=== PATIENT | male | born 1960 | race Caucasian/White ===

== ENCOUNTER 2019-02-19 22:28 | Emergency (ER) | payer OTHER ==
--- NOTE | 2019-02-19 23:07 | EDM.PDOC ---
ED HPI GENERAL MEDICAL PROBLEM - General Chief Complaint: Abdominal Pain Stated Complaint: ABDOMINAL PAIN Time Seen by Provider: 02/19/19 22:57 - History of Present Illness INITIAL COMMENTS - FREE TEXT/NARRATIVE: 58-year-old male presents emergency room with abdominal pain. This pain started early this morning comes and goes. He's had some nausea with this but no vomiting. Up until today he's had fairly normal bowel movements. He' s worried about an appendicitis as the pain is in the right lower quadrant at its worse location. He has no significant history of abdominal surgeries and otherwise enjoys good health other than treatment for his hypertension.. Treatments SOLUTION SPEC: Reports: Other (see below) Other Treatments SOLUTION SPEC: none Abdomen Pain Score (Numeric/FACES): 8 - Related Data Allergies Allergy/AdvReac Type Severity Reaction Status Date / Time contrast dye Allergy Anaphylactic Uncoded 02/19/19 22:42 Shock Home Meds: Home Meds Candesartan/Hydrochlorothiazid [Atacand Hct 32-12.5 mg Tab] 1 each PO DAILY [History] Doxazosin [Doxazosin Mesylate] 8 mg PO BEDTIME 02/23/14 [History] Cholecalciferol (Vitamin D3) [Vitamin D3] 2,000 unit PO DAILY 02/19/19 [History] Spironolactone [Aldactone] 12.5 mg PO DAILY 02/19/19 [History] Past Medical History HEENT History: Reports: Other (See Below) Other HEENT History: deviated septum surgery Cardiovascular History: Reports: Hypertension Genitourinary History: Reports: Prostate Disorder Social & Family History - Tobacco Use Smoking Status *Q: Former Smoker Used Tobacco, but Quit: Yes Month/Year Tobacco Last Used: 35 yrs - Caffeine Use Caffeine Use: Reports: Coffee, Soda - Recreational Drug Use Recreational Drug Use: No ED ROS GENERAL - Review of Systems Review Of Systems: See Below Constitutional: Reports: No Symptoms, Weight Gain HEENT: Reports: Vertigo Cardiovascular: Reports: No Symptoms GI/Abdominal: Reports: Abdominal Pain, Nausea. Denies: Constipation, Diarrhea : Reports: No Symptoms Musculoskeletal: Reports: No Symptoms Skin: Reports: No Symptoms Neurological: Reports: No Symptoms ED EXAM, GI/ABD - Physical Exam Exam: See Below Exam Limited By: No Limitations General Appearance: Alert, No Apparent Distress Head: Atraumatic, Normocephalic Neck: Normal Inspection, Supple, Non-Tender. No: Lymphadenopathy (L), Lymphadenopathy (R) Respiratory/Chest: No Respiratory Distress, Lungs Clear, Normal Breath Sounds Cardiovascular: Regular Rate, Rhythm, No Edema, No Murmur GI/Abdominal Exam: Normal Bowel Sounds, Soft, Tender (He has some vague discomfort mostly in the right lower quadrant no rigidity rebound or guarding noted) Back Exam: Normal Inspection. No: CVA Tenderness (L), CVA Tenderness (R) Extremities: Normal Inspection, No Pedal Edema Neurological: Alert, Normal Cognition, Normal Reflexes Course - Vital Signs Last Recorded V/S: Last Vital Signs Temp 36.7 C 02/19/19 22:48 Pulse 63 02/19/19 22:48 Resp 20 02/19/19 22:48 BP 161/90 H 02/19/19 22:48 Pulse Ox 97 02/19/19 22:48 - Orders/Labs/Meds Orders: Active Orders 24 hr Category Date Time Status Abdomen 2V AP Flat Upright [CR] Stat Exams 02/19/19 23:23 Taken Labs: Laboratory Tests 02/19/19 02/19/19 02/19/19 Range/Units 23:34 23:34 23:46 WBC 11.72 H (4.23-9.07) K/mm3 RBC 5.10 (4.63-6.08) M/mm3 Hgb 15.2 (13.7-17.5) gm/L Hct 44.0 (40.1-51.0) % MCV 86.3 (79.0-92.2) fl MCH 29.8 (25.7-32.2) pg MCHC 34.5 (32.2-35.5) g/dl RDW Std Deviation 41.4 (35.1-43.9) fL Plt Count 134 L (163-337) K/mm3 MPV 11.5 (9.4-12.3) fl Neutrophils % (Manual) 80 H (40-60) % Band Neutrophils % 2 (0-10) % Lymphocytes % (Manual) 12 L (20-40) % Atypical Lymphs % 0 % Monocytes % (Manual) 6 (2-10) % Eosinophils % (Manual) 0 L (0.8-7.0) % Basophils % (Manual) 0 L (0.2-1.2) Toxic Granulation 1+ slight Platelet Estimate Decreased Plt Morphology Comment Normal RBC Morph Comment Normal Sodium 135 L (136-145) mEq/L Potassium 3.3 L (3.5-5.1) mEq/L Chloride 99 (98-107) mEq/L Carbon Dioxide 24 (21-32) mEq/L Anion Gap 15.3 H (5-15) BUN 22 H (7-18) mg/dL Creatinine 1.2 (0.7-1.3) mg/dL Est Cr Clr Drug Dosing 69.72 mL/min Estimated GFR (MDRD) > 60 (>60) mL/min BUN/Creatinine Ratio 18.3 H (14-18) Glucose 119 H (74-106) mg/dL Calcium 9.6 (8.5-10.1) mg/dL Total Bilirubin 0.6 (0.2-1.0) mg/dL AST 22 (15-37) U/L ALT 47 (16-63) U/L Alkaline Phosphatase 43 L (46-116) U/L C-Reactive Protein 0.3 (<1.0) mg/dL Total Protein 7.2 (6.4-8.2) g/dl Albumin 4.0 (3.4-5.0) g/dl Globulin 3.2 gm/dL Albumin/Globulin Ratio 1.3 (1-2) Urine Color Yellow (Yellow) Urine Appearance Clear (Clear) Urine pH 6.5 (5.0-8.0) Ur Specific [place] 1.025 (1.005-1.030) Urine Protein Trace H (Negative) Urine Glucose (UA) Negative (Negative) Urine Ketones 1+ H (Negative) Urine Occult Blood Negative (Negative) Urine Nitrite Negative (Negative) Urine Bilirubin Negative (Negative) Urine Urobilinogen 0.2 (0.2-1.0) Ur Leukocyte Esterase Negative (Negative) Urine RBC 0-5 (0-5) /hpf Urine WBC Not seen (0-5) /hpf Ur Epithelial Cells Not Reportable Ur Squamous Epith Cells 0-5 (0-5) /hpf Amorphous Sediment Rare H (NOT SEEN) /hpf Urine Bacteria Few (FEW) /hpf Urine Mucus Few (FEW) /hpf Meds: Medications Discontinued Medications Generic Name Dose Route Start Last Admin Trade Name Freq PRN Reason Stop Dose Admin Lactated Ringer's 1,000 mls @ 999 mls/hr 02/19/19 23:25 02/19/19 23:41 Ringers, Lactated IV 02/20/19 00:25 999 mls/hr .BOLUS ONE Administration Ondansetron HCl 4 mg 02/19/19 23:25 02/19/19 23:42 Zofran IVPUSH 02/19/19 23:26 4 mg ONETIME ONE Administration - Re-Assessments/Exams Free Text/Narrative Re-Assessment/Exam: 02/20/19 00:46 Laboratory evaluation is for the most part unrevealing. KUB and upright were done he's got it fair amount of stool in the right colon than scattered stool throughout. The patient is not eager to have a CT is she's had a bad reaction to the contrast in the past. We discussed pretreatment for this versus going home clear liquid diet trying the mag citrate and see if this helps. The patient would like to try this option he also agrees to return in 12 hours if not better sooner if getting worse Departure - Departure Time of Disposition: 00:51 Disposition: Home, Self-Care 01 Clinical Impression: Abdominal pain of unknown etiology - Discharge Information Referrals: Dominick Milton MD [Primary Care Provider] - Forms: ED Department Discharge Additional Instructions: The cause of your abdominal pain is uncertain it could very well be due to retained stool in the right side of your colon. However we are not completely certain of this. For the next 12 hours clear liquid diet only. Drink the mag citrate when he gets home and repeat in 4-6 hours if needed. If not clearly improving in 12 hours return to the emergency room for recheck. Use the Zofran, the nausea medication one every 4-6 hours as needed. Return to the emergency room sooner with any worsening problems questions or concerns. - My Orders Last 24 Hours: My Active Orders 02/19/19 23:23 Abdomen 2V AP Flat Upright [CR] Stat - Assessment/Plan Last 24 Hours: My Active Orders 02/19/19 23:23 Abdomen 2V AP Flat Upright [CR] Stat
[2019-02-19] MEDS ORDERED: Ondansetron 4 MG/2 ML SDV IVPUSH ONE (23:25)
[2019-02-19] MEDS ORDERED: Lactated Ringers 1,000 ML IV ONE (23:25)
[2019-02-20] MEDS ORDERED: Magnesium Citrate Solution 296 ML Bottle PO ONE (00:51)
--- NOTE | 2019-02-20 07:15 | CR ---
Abdomen: Supine view of the abdomen was obtained as well as upright study. Scattered gas within colon and small bowel is noted. No bowel dilatation is seen. No abnormal calcifications or soft tissue abnormalities seen. Slight degenerative change is seen within the spine. Impression: 1. Nothing acute is seen on two-view abdominal x-ray. Diagnostic code #2
== END 2019-02-20 01:05 | disposition home or self-care (01) ==
LOC: JD.ED 22:28
DX: R10.31 Right lower quadrant pain (principal); I10 Essential (primary) hypertension; Z79.899 Other long term (current) drug therapy; Z91.041 Radiographic dye allergy status; Z87.891 Personal history of nicotine dependence
CPT/HCPCS: 36415; 74019; 80053; 81001; 85007; 85027; 86140; 96361; 96374; 99284; A9270; J2405; J7120; 99283

== ENCOUNTER 2019-11-01 03:09 | Day surgery (SDC) | payer OTHER ==
--- NOTE | 2019-11-01 04:09 | EDM.PDOC ---
ED HPI GENERAL MEDICAL PROBLEM - General Chief Complaint: Abdominal Pain Stated Complaint: LOWER ABDOMINAL PAIN RT SIDE MED ISSUE Time Seen by Provider: 11/01/19 03:52 Source of Information: Reports: Patient History Limitations: Reports: No Limitations - History of Present Illness INITIAL COMMENTS - FREE TEXT/NARRATIVE: This is a 58-year-old male. He was seen for some sinus congestion and upper respiratory symptoms yesterday and placed on Augmentin. He took his first dose yesterday evening. This morning he took a second dose and afterwards he developed some sharp pain with nausea in his lower abdomen. He has had this sharp pain for about 1 hour and he comes to the ER. No fever and no chills. He has had no diarrhea and no vomiting though he has been nauseated. The pain seems to be midline lower abdomen and also in the right lower quadrant. He walks with no difficulty and no hesitation. He moves about with no difficulty. Denies any other acute symptoms. Lower Abdomen Pain Score (Numeric/FACES): 7 - Related Data Allergies Allergy/AdvReac Type Severity Reaction Status Date / Time contrast dye Allergy Anaphylactic Uncoded 11/01/19 03:26 Shock Home Meds: Home Meds Candesartan/Hydrochlorothiazid [Atacand Hct 32-12.5 mg Tab] 1 each PO DAILY [History] Doxazosin [Doxazosin Mesylate] 8 mg PO BEDTIME 02/23/14 [History] Cholecalciferol (Vitamin D3) [Vitamin D3] 2,000 unit PO DAILY 02/19/19 [History] Spironolactone [Aldactone] 12.5 mg PO DAILY 02/19/19 [History] Past Medical History HEENT History: Reports: Other (See Below) Other HEENT History: deviated septum surgery Cardiovascular History: Reports: Hypertension Genitourinary History: Reports: Prostate Disorder Social & Family History - Family History Family Medical History: Noncontributory - Tobacco Use Smoking Status *Q: Unknown Ever Smoked - Caffeine Use Caffeine Use: Reports: Coffee, Soda ED ROS GENERAL - Review of Systems Review Of Systems: See Below Constitutional: Denies: Fever, Chills HEENT: Reports: Rhinitis, Sinus Problem Respiratory: Reports: Cough. Denies: Shortness of Breath, Wheezing Cardiovascular: Denies: Chest Pain Endocrine: Reports: No Symptoms GI/Abdominal: Reports: Abdominal Pain, Nausea. Denies: Constipation, Diarrhea, Vomiting : Reports: No Symptoms Musculoskeletal: Reports: No Symptoms Skin: Reports: No Symptoms Neurological: Reports: No Symptoms Psychiatric: Reports: No Symptoms Hematologic/Lymphatic: Reports: No Symptoms ED EXAM, GI/ABD - Physical Exam Exam: See Below Exam Limited By: No Limitations General Appearance: Alert, WD/WN, No Apparent Distress Eyes: Bilateral: Normal Appearance Ears: Normal External Exam Nose: Nasal Drainage, Clear Rhinorrhea Throat/Mouth: Normal Inspection, Normal Lips, No Airway Compromise, Other ( Patient has a hoarse voice) Head: Normocephalic Neck: Supple Respiratory/Chest: No Respiratory Distress, Lungs Clear, Normal Breath Sounds Cardiovascular: Regular Rate, Rhythm, No Murmur GI/Abdominal Exam: Soft, Other (He has some moderate midline and right lower quadrant tenderness but there are no rebound and no peritoneal irritation noted , his upper abdomen is nontender in the left lower quadrant is essentially nontender, bowel sounds are positive but they are decreased) Back Exam: Normal Inspection, Full Range of Motion Extremities: Normal Inspection, Normal Range of Motion Neurological: Alert, Oriented Psychiatric: Normal Affect, Normal Mood Skin Exam: Warm, Dry Course - Vital Signs Last Recorded V/S: Last Vital Signs Temp 97.5 F 11/01/19 03:23 Pulse 65 11/01/19 03:23 Resp 16 11/01/19 03:23 BP 152/85 H 11/01/19 03:23 Pulse Ox 95 11/01/19 03:23 - Orders/Labs/Meds Orders: Active Orders 24 hr Category Date Time Status Admission Status [Patient Status] [ADT] Routine ADT 11/01/19 05:19 Active NPO [Nothing Per Oral Diet] [DIET] Diet 11/01/19 Lunch Active Abdomen Pelvis wo Cont [CT] Stat Exams 11/01/19 03:59 Taken Ertapenem [INVanz] 1 gm Med 11/01/19 07:07 Pending Sodium Chloride 0.9% [Normal Saline] 50 ml IV ONETIME Lactated Ringers [Ringers, Lactated] 1,000 ml Med 11/01/19 07:15 Active IV ASDIRECTED Morphine Med 11/01/19 07:07 Active 1 mg IVPUSH Q4H PRN Schedule Procedure [COMM] Routine Oth 11/01/19 07:06 Ordered Medication Orders Ertapenem 1 gm/ Sodium (Chloride) 50 mls @ 100 mls/hr IV ONETIME ONE Stop: 11/01/19 07:36 Lactated Ringer's (Ringers, Lactated) 1,000 mls @ 100 mls/hr IV ASDIRECTED [facility] Last Admin: 11/01/19 07:16 Dose: 100 mls/hr Morphine Sulfate (Morphine) 1 mg IVPUSH Q4H PRN PRN Reason: Pain (severe 7-10) Labs: Laboratory Tests 11/01/19 11/01/19 11/01/19 Range/Units 04:05 04:25 04:25 WBC 6.06 (4.23-9.07) K/mm3 RBC 4.91 (4.63-6.08) M/mm3 Hgb 14.7 (13.7-17.5) gm/dl Hct 42.1 (40.1-51.0) % MCV 85.7 (79.0-92.2) fl MCH 29.9 (25.7-32.2) pg MCHC 34.9 (32.2-35.5) g/dl RDW Std Deviation 41.1 (35.1-43.9) fL Plt Count 106 L (163-337) K/mm3 MPV 10.7 (9.4-12.3) fl Neut % (Auto) 79.7 H (34.0-67.9) % Lymph % (Auto) 11.1 L (21.8-53.1) % [place] % (Auto) 8.1 (5.3-12.2) % Eos % (Auto) 0.7 L (0.8-7.0) Baso % (Auto) 0.2 (0.1-1.2) % Neut # (Auto) 4.84 (1.78-5.38) K/mm3 Lymph # (Auto) 0.67 L (1.32-3.57) K/mm3 [place] # (Auto) 0.49 (0.30-0.82) K/mm3 Eos # (Auto) 0.04 (0.04-0.54) K/mm3 Baso # (Auto) 0.01 (0.01-0.08) K/mm3 Sodium 140 (136-145) mEq/L Potassium 3.8 (3.5-5.1) mEq/L Chloride 103 (98-107) mEq/L Carbon Dioxide 26 (21-32) mEq/L Anion Gap 14.8 (5-15) BUN 16 (7-18) mg/dL Creatinine 1.2 (0.7-1.3) mg/dL Est Cr Clr Drug Dosing TNP Estimated GFR (MDRD) > 60 (>60) mL/min BUN/Creatinine Ratio 13.3 L (14-18) Glucose 111 H (74-106) mg/dL Calcium 8.6 (8.5-10.1) mg/dL Total Bilirubin 0.5 (0.2-1.0) mg/dL AST 37 (15-37) U/L ALT 67 H (16-63) U/L Alkaline Phosphatase 50 (46-116) U/L Total Protein 7.0 (6.4-8.2) g/dl Albumin 3.6 (3.4-5.0) g/dl Globulin 3.4 gm/dL Albumin/Globulin Ratio 1.1 (1-2) Urine Color Yellow (Yellow) Urine Appearance Clear (Clear) Urine pH 6.5 (5.0-8.0) Ur Specific [place] 1.025 (1.005-1.030) Urine Protein Negative (Negative) Urine Glucose (UA) Negative (Negative) Urine Ketones Trace H (Negative) Urine Occult Blood Trace-intact H (Negative) Urine Nitrite Negative (Negative) Urine Bilirubin Negative (Negative) Urine Urobilinogen 0.2 (0.2-1.0) Ur Leukocyte Esterase Negative (Negative) Urine RBC 0-5 (0-5) /hpf Urine WBC 0-5 (0-5) /hpf Ur Epithelial Cells Not seen (0-5) /hpf Urine Bacteria Occasional (FEW) /hpf Urine Mucus Not seen (FEW) /hpf Meds: Medications Generic Name Dose Route Start Last Admin Trade Name Freq PRN Reason Stop Dose Admin Ertapenem 1 gm/ Sodium 50 mls @ 100 mls/hr 11/01/19 07:07 Chloride IV 11/01/19 07:36 ONETIME ONE Lactated Ringer's 1,000 mls @ 100 mls/hr 11/01/19 07:15 11/01/19 07:16 Ringers, Lactated IV 100 mls/hr ASDIRECTED [facility]U Administration Morphine Sulfate 1 mg 11/01/19 07:07 Morphine IVPUSH Q4H PRN Pain (severe 7-10) Discontinued Medications Generic Name Dose Route Start Last Admin Trade Name Christopher PRN Reason Stop Dose Admin Piperacillin Sod/Tazobactam 100 mls @ 200 mls/hr 11/01/19 05:06 11/01/19 05: 25 Sod 4.5 gm/ Sodium Chloride IV 11/01/19 05:35 200 mls/hr ONETIME ONE Administration - Radiology Interpretation Free Text/Narrative:: CT scan of the abdomen shows acute appendicitis - Re-Assessments/Exams Free Text/Narrative Re-Assessment/Exam: 11/01/19 05:13 I spoke to the patient regarding the CT scan results. I then spoke to Dr. Toth who would like Zosyn IV started and we will get a bed for the patient and he will come in and see the patient. I also explained to Dr. Toth that the patient does have an upper respiratory infection for which she is being treated with Augmentin. Last time the patient ate was 5 PM yesterday he has been drinking some water since that time. 11/01/19 07:28 Patient has been sleeping peacefully. Departure - Departure Time of Disposition: 05:15 Disposition: DC/Tfer to [facility] Condition: Fair Clinical Impression: Appendicitis, acute Qualifiers: Acute appendicitis type: with localized peritonitis Appendicitis gangrene presence: without gangrene Appendicitis perforation presence: without perforation Appendicitis abscess presence: without abscess Qualified Code(s): K35.30 - Acute appendicitis with localized peritonitis, without perforation or gangrene - Discharge Information Sepsis Event Note - Evaluation Sepsis Screening Result: No Definite Risk - Focused Exam Vital Signs: Vital Signs Temp Pulse Resp BP Pulse Ox 11/01/19 03:23 97.5 F 65 16 152/85 H 95 Date Exam was Performed: 11/01/19 Time Exam was Performed: 07:28 ED Communication - ED Communication Date/Time Date: 11/01/19 Time Called: 05:15 - Discussed Case With (1) Discussed Case With (1): Admitting Provider Person/s Notified (1): Maximiliano Toth (He will admit to observation for further evaluation and treatment) - My Orders Last 24 Hours: My Active Orders 11/01/19 03:59 Abdomen Pelvis wo Cont [CT] Stat 11/01/19 05:19 Admission Status [Patient Status] [ADT] Routine - Assessment/Plan Last 24 Hours: My Active Orders 11/01/19 03:59 Abdomen Pelvis wo Cont [CT] Stat 11/01/19 05:19 Admission Status [Patient Status] [ADT] Routine
[2019-11-01] MEDS ORDERED: Piperacillin/Tazobactam 4.5 GM in Sodium Chloride 0.9% 100 ML IV ONE (05:06)
[2019-11-01] MEDS ORDERED: Ertapenem 1 GM in Sodium Chloride 0.9% 50 ML IV ONE (07:07)
[2019-11-01] MEDS ORDERED: Morphine 2 MG/ML Syringe IVPUSH PRN (07:07)
[2019-11-01] MEDS ORDERED: Lactated Ringers 1,000 ML IV SCH (07:15)
--- NOTE | 2019-11-01 07:45 | PCM.HP.2 ---
H&P History of Present Illness - General Date of Service: 11/01/19 Admit Problem/Dx: Admission Diagnosis/Problem Admission Diagnosis/Problem Appendicitis Source of Information: Patient History Limitations: Reports: No Limitations - History of Present Illness Initial Comments - Free Text/Narative: 58 yo M presents with RLQ pain that began suddenly last night out of the blue. He had similar pain back in February this year, at which time he was seen in the ER and sent out on a bowel regimen for constipation and his symptoms subsided. He has associated anorexia. He denies fever, though he has been taking augmentin for the past two days for sinusitis. His WBC is normal. CT scan without contrast (the patient has an iodine allergy) shows some inflammatory changes around the appendix and moderate stool burden in the R colon with fecalization in the terminal ileum similar to past imaging. Onset of Symptoms: Reports: Today Duration of Symptoms: Reports: Hour(s): Location: Reports: Abdomen Lower Abdomen Pain Score (Numeric/FACES): 7 - Related Data Allergies/Adverse Reactions: Allergies Allergy/AdvReac Type Severity Reaction Status Date / Time contrast dye Allergy Anaphylactic Uncoded 11/01/19 03:26 Shock Home Medications: Home Meds Candesartan/Hydrochlorothiazid [Atacand Hct 32-12.5 mg Tab] 1 each PO DAILY [History] Doxazosin [Doxazosin Mesylate] 8 mg PO BEDTIME 02/23/14 [History] Cholecalciferol (Vitamin D3) [Vitamin D3] 2,000 unit PO DAILY 02/19/19 [History] Spironolactone [Aldactone] 12.5 mg PO DAILY 02/19/19 [History] Past Medical History HEENT History: Reports: Other (See Below) Other HEENT History: deviated septum surgery Cardiovascular History: Reports: Hypertension Genitourinary History: Reports: Prostate Disorder Social & Family History - Family History Family Medical History: Noncontributory - Tobacco Use Smoking Status *Q: Unknown Ever Smoked - Caffeine Use Caffeine Use: Reports: Coffee, Soda H&P Review of Systems - Review of Systems: Review Of Systems: See Below General: Reports: Malaise HEENT: Reports: Post Nasal Drip, Sinus Congestion Cardiovascular: Reports: No Symptoms Gastrointestinal: Reports: Abdominal Pain, Anorexia Genitourinary: Reports: No Symptoms Musculoskeletal: Reports: No Symptoms Skin: Reports: No Symptoms Psychiatric: Reports: No Symptoms Neurological: Reports: No Symptoms Hematologic/Lymphatic: Reports: No Symptoms Immunologic: Reports: No Symptoms Exam - Exam Exam: See Below - Vital Signs Vital Signs: Last Vital Signs Temp 36.4 C 11/01/19 03:23 Pulse 65 11/01/19 03:23 Resp 16 11/01/19 03:23 BP 152/85 H 11/01/19 03:23 Pulse Ox 95 11/01/19 03:23 - Exam General: Alert, Oriented HEENT: Conjunctiva Clear Neck: Trachea Midline Lungs: Clear to Auscultation, Normal Respiratory Effort Cardiovascular: Regular Rate, Regular Rhythm GI/Abdominal Exam: Soft, Guarding, Tender (Male) Exam: Deferred Rectal (Males) Exam: Deferred Extremities: Normal Inspection Skin: Warm, Dry Neurological: Strength Equal Bilateral Neuro Extensive - Mental Status: Alert, Oriented x3, Normal Mood/Affect Psychiatric: Alert, Normal Affect, Normal Mood - Patient Data Lab Results Last 24 hrs: Laboratory Results - last 24 hr 11/01/19 11/01/19 11/01/19 Range/Units 04:05 04:25 04:25 WBC 6.06 (4.23-9.07) K/mm3 RBC 4.91 (4.63-6.08) M/mm3 Hgb 14.7 (13.7-17.5) gm/dl Hct 42.1 (40.1-51.0) % MCV 85.7 (79.0-92.2) fl MCH 29.9 (25.7-32.2) pg MCHC 34.9 (32.2-35.5) g/dl RDW Std Deviation 41.1 (35.1-43.9) fL Plt Count 106 L (163-337) K/mm3 MPV 10.7 (9.4-12.3) fl Neut % (Auto) 79.7 H (34.0-67.9) % Lymph % (Auto) 11.1 L (21.8-53.1) % [place] % (Auto) 8.1 (5.3-12.2) % Eos % (Auto) 0.7 L (0.8-7.0) Baso % (Auto) 0.2 (0.1-1.2) % Neut # (Auto) 4.84 (1.78-5.38) K/mm3 Lymph # (Auto) 0.67 L (1.32-3.57) K/mm3 [place] # (Auto) 0.49 (0.30-0.82) K/mm3 Eos # (Auto) 0.04 (0.04-0.54) K/mm3 Baso # (Auto) 0.01 (0.01-0.08) K/mm3 Sodium 140 (136-145) mEq/L Potassium 3.8 (3.5-5.1) mEq/L Chloride 103 (98-107) mEq/L Carbon Dioxide 26 (21-32) mEq/L Anion Gap 14.8 (5-15) BUN 16 (7-18) mg/dL Creatinine 1.2 (0.7-1.3) mg/dL Est Cr Clr Drug Dosing TNP Estimated GFR (MDRD) > 60 (>60) mL/min BUN/Creatinine Ratio 13.3 L (14-18) Glucose 111 H (74-106) mg/dL Calcium 8.6 (8.5-10.1) mg/dL Total Bilirubin 0.5 (0.2-1.0) mg/dL AST 37 (15-37) U/L ALT 67 H (16-63) U/L Alkaline Phosphatase 50 (46-116) U/L Total Protein 7.0 (6.4-8.2) g/dl Albumin 3.6 (3.4-5.0) g/dl Globulin 3.4 gm/dL Albumin/Globulin Ratio 1.1 (1-2) Urine Color Yellow (Yellow) Urine Appearance Clear (Clear) Urine pH 6.5 (5.0-8.0) Ur Specific [place] 1.025 (1.005-1.030) Urine Protein Negative (Negative) Urine Glucose (UA) Negative (Negative) Urine Ketones Trace H (Negative) Urine Occult Blood Trace-intact H (Negative) Urine Nitrite Negative (Negative) Urine Bilirubin Negative (Negative) Urine Urobilinogen 0.2 (0.2-1.0) Ur Leukocyte Esterase Negative (Negative) Urine RBC 0-5 (0-5) /hpf Urine WBC 0-5 (0-5) /hpf Ur Epithelial Cells Not seen (0-5) /hpf Urine Bacteria Occasional (FEW) /hpf Urine Mucus Not seen (FEW) /hpf Result Diagrams: 11/01/19 04:25 11/01/19 04:25 Sepsis Event Note - Evaluation Sepsis Screening Result: No Definite Risk - Focused Exam Vital Signs: Vital Signs Temp Pulse Resp BP Pulse Ox 11/01/19 03:23 36.4 C 65 16 152/85 H 95 Date Exam was Performed: 11/01/19 Time Exam was Performed: 07:40 *Q Meaningful Use (ADM) - VTE Risk Assess *Q Each Risk Factor Represents 2 Points: Age 60 - 74 Years, Laparoscopic surgery greater than 45 minutes Total Score 2 Point Risk Factors: 4 Problem List Initiated/Reviewed/Updated: Yes Orders Last 24hrs: Active Orders 24 hr Category Date Time Status Admission Status [Patient Status] [ADT] Routine ADT 11/01/19 05:19 Active NPO [Nothing Per Oral Diet] [DIET] Diet 11/01/19 Lunch Active Abdomen Pelvis wo Cont [CT] Stat Exams 11/01/19 03:59 Taken Lactated Ringers [Ringers, Lactated] 1,000 ml Med 11/01/19 07:15 Active IV ASDIRECTED Morphine Med 11/01/19 07:07 Active 1 mg IVPUSH Q4H PRN Schedule Procedure [COMM] Routine Oth 11/01/19 07:06 Ordered Medication Orders Lactated Ringer's (Ringers, Lactated) 1,000 mls @ 100 mls/hr IV ASDIRECTED [facility]U Last Admin: 11/01/19 07:16 Dose: 100 mls/hr Morphine Sulfate (Morphine) 1 mg IVPUSH Q4H PRN PRN Reason: Pain (severe 7-10) Assessment/Plan Comment:: Most likely acute appendicitis based on history and imaging, though patient presented with similar clinical picture in February and felt better after bowel regimen was prescribed. Plan for laparoscopic appendectomy. Reviewed risks; specifically that of bleeding and post-operative abscess. - Mortality Measure Prognosis:: Good
[2019-11-01] MEDS ORDERED: Bupivacaine 0.5% 30 ML SDV ONE ×2 (07:58→12:58)
[2019-11-01] MEDS ORDERED: fentaNYL 250 MCG/5 ML SDV ONE ×2 (08:04→12:47)
[2019-11-01] MEDS ORDERED: Lidocaine 1% 4 ML ONE (08:04)
[2019-11-01] MEDS ORDERED: Ondansetron 4 MG/2 ML SDV ONE (08:04)
[2019-11-01] MEDS ORDERED: Midazolam 1 MG/ML 2 ML SDV ONE ×3 (08:04→12:47)
[2019-11-01] MEDS ORDERED: Lactated Ringers 1,000 ML ONE (08:04)
[2019-11-01] MEDS ORDERED: Propofol 200 MG/20 ML SDV ONE ×3 (08:04→12:47)
[2019-11-01] MEDS ORDERED: Succinylcholine/Normal Saline 100 MG/5 ML Syringe ONE (08:04)
[2019-11-01] MEDS ORDERED: Rocuronium 100 MG/10 ML MDV ONE ×2 (08:05→14:22)
[2019-11-01] MEDS ORDERED: Albuterol 6.7 GM Inhaler INH ONE (08:08)
[2019-11-01] MEDS ORDERED: Sodium Chloride 0.9% 50 ML SDV ONE (08:21)
[2019-11-01] MEDS ORDERED: Albuterol 0.083% 2.5 MG/3 ML Neb Soln NEB ONE (08:23)
[2019-11-01] MEDS ORDERED: Dexamethasone 4 MG/ML 5 ML MDV ONE (08:44)
[2019-11-01] MEDS ORDERED: Ketamine 500 mg/10 ML MDV ONE (09:15)
[2019-11-01] MEDS ORDERED: HYDROmorphone 0.5 MG/0.5 ML Syringe IVPUSH PRN (09:35)
[2019-11-01] MEDS ORDERED: Albuterol 0.083% 2.5 MG/3 ML Neb Soln NEB PRN (09:35)
[2019-11-01] MEDS ORDERED: fentaNYL 100 MCG/2 ML SDV IVPUSH PRN (09:35)
[2019-11-01] MEDS ORDERED: Ondansetron 4 MG/2 ML SDV IVPUSH PRN (09:35)
--- NOTE | 2019-11-01 09:41 | PCM.PREANE ---
Preanesthetic Assessment - Procedure Proposed Procedure: Laparoscopic Appendectomy - Anesthesia/Transfusion/Family Hx Anesthesia History: Prior Anesthesia Without Reaction Family History of Anesthesia Reaction: No - Review of Systems General: Malaise Pulmonary: Cough (Occ productive clear. ), Other (Bronchitis one month ago. Sinusitis chronic for years. Currently on augmentin. Very congested. Denies SOB. ZURI cannot tolerated CPAP. Uses a jaw elevation device. ) Cardiovascular: No Symptoms (History of "mild" abnormality on EKG several years ago. Hand an ECHO that should a mild leaking valve. ) Gastrointestinal: Abdominal Pain, Decreased Appetite, Nausea (Improved from arrival. ) Neurological: Headache (Chronic due to sinusitis.) Other: Reports: None, Sinus Problem (Sinus problems since the . Deveated septum history of surgical intervention. ) - Physical Assessment NPO Status Date: 10/31/19 NPO Status Time: 19:00 Vital Signs: Last Vital Signs Temp 36.4 C 11/01/19 03:23 Pulse 65 11/01/19 03:23 Resp 16 11/01/19 03:23 BP 152/85 H 11/01/19 03:23 Pulse Ox 98 11/01/19 08:43 Weight: 85.729 kg ASA Class: 2E Mental Status: Alert & Oriented x3 Airway Class: Mallampati = 2 Dentition: Reports: Normal Dentition, Bridge (Upper ) Thyro-Mental Finger Breadths: 2 Mouth Opening Finger Breadths: 3 ROM/Head Extension: Full Lungs: Clear to Auscultation, Normal Respiratory Effort Cardiovascular: Regular Rate, Regular Rhythm - Lab Values: Laboratory Last Values WBC 6.06 K/mm3 (4.23-9.07) 11/01/19 04:25 RBC 4.91 M/mm3 (4.63-6.08) 11/01/19 04:25 Hgb 14.7 gm/dl (13.7-17.5) 11/01/19 04:25 Hct 42.1 % (40.1-51.0) 11/01/19 04:25 MCV 85.7 fl (79.0-92.2) 11/01/19 04:25 MCH 29.9 pg (25.7-32.2) 11/01/19 04:25 MCHC 34.9 g/dl (32.2-35.5) 11/01/19 04:25 RDW Std Deviation 41.1 fL (35.1-43.9) 11/01/19 04:25 Plt Count 106 K/mm3 (163-337) L 11/01/19 04:25 MPV 10.7 fl (9.4-12.3) 11/01/19 04:25 Neut % (Auto) 79.7 % (34.0-67.9) H 11/01/19 04:25 Lymph % (Auto) 11.1 % (21.8-53.1) L 11/01/19 04:25 [place] % (Auto) 8.1 % (5.3-12.2) 11/01/19 04:25 Eos % (Auto) 0.7 (0.8-7.0) L 11/01/19 04:25 Baso % (Auto) 0.2 % (0.1-1.2) 11/01/19 04:25 Neut # (Auto) 4.84 K/mm3 (1.78-5.38) 11/01/19 04:25 Lymph # (Auto) 0.67 K/mm3 (1.32-3.57) L 11/01/19 04:25 [place] # (Auto) 0.49 K/mm3 (0.30-0.82) 11/01/19 04:25 Eos # (Auto) 0.04 K/mm3 (0.04-0.54) 11/01/19 04:25 Baso # (Auto) 0.01 K/mm3 (0.01-0.08) 11/01/19 04:25 Sodium 140 mEq/L (136-145) 11/01/19 04:25 Potassium 3.8 mEq/L (3.5-5.1) 11/01/19 04:25 Chloride 103 mEq/L (98-107) 11/01/19 04:25 Carbon Dioxide 26 mEq/L (21-32) 11/01/19 04:25 Anion Gap 14.8 (5-15) 11/01/19 04:25 BUN 16 mg/dL (7-18) 11/01/19 04:25 Creatinine 1.2 mg/dL (0.7-1.3) 11/01/19 04:25 Est Cr Clr Drug Dosing TNP 11/01/19 04:25 Estimated GFR (MDRD) > 60 mL/min (>60) 11/01/19 04:25 BUN/Creatinine Ratio 13.3 (14-18) L 11/01/19 04:25 Glucose 111 mg/dL (74-106) H 11/01/19 04:25 Calcium 8.6 mg/dL (8.5-10.1) 11/01/19 04:25 Total Bilirubin 0.5 mg/dL (0.2-1.0) 11/01/19 04:25 AST 37 U/L (15-37) 11/01/19 04:25 ALT 67 U/L (16-63) H 11/01/19 04:25 Alkaline Phosphatase 50 U/L (46-116) 11/01/19 04:25 Total Protein 7.0 g/dl (6.4-8.2) 11/01/19 04:25 Albumin 3.6 g/dl (3.4-5.0) 11/01/19 04:25 Globulin 3.4 gm/dL 11/01/19 04:25 Albumin/Globulin Ratio 1.1 (1-2) 11/01/19 04:25 Urine Color Yellow (Yellow) 11/01/19 04:05 Urine Appearance Clear (Clear) 11/01/19 04:05 Urine pH 6.5 (5.0-8.0) 11/01/19 04:05 Ur Specific [place] 1.025 (1.005-1.030) 11/01/19 04:05 Urine Protein Negative (Negative) 11/01/19 04:05 Urine Glucose (UA) Negative (Negative) 11/01/19 04:05 Urine Ketones Trace (Negative) H 11/01/19 04:05 Urine Occult Blood Trace-intact (Negative) H 11/01/19 04:05 Urine Nitrite Negative (Negative) 11/01/19 04:05 Urine Bilirubin Negative (Negative) 11/01/19 04:05 Urine Urobilinogen 0.2 (0.2-1.0) 11/01/19 04:05 Ur Leukocyte Esterase Negative (Negative) 11/01/19 04:05 Urine RBC 0-5 /hpf (0-5) 11/01/19 04:05 Urine WBC 0-5 /hpf (0-5) 11/01/19 04:05 Ur Epithelial Cells Not seen /hpf (0-5) 11/01/19 04:05 Urine Bacteria Occasional /hpf (FEW) 11/01/19 04:05 Urine Mucus Not seen /hpf (FEW) 11/01/19 04:05 - Allergies Allergies/Adverse Reactions: Allergies Allergy/AdvReac Type Severity Reaction Status Date / Time contrast dye Allergy Anaphylactic Uncoded 11/01/19 03:26 Shock - Anesthesia Plan Pre-Op Medication Ordered: Anxiolytic, Other (Preop Nebulizer, Dexamethasone. 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 Smoking Status *Q: Unknown Ever Smoked - HOME MEDS Home Medications: Home Meds Candesartan/Hydrochlorothiazid [Atacand Hct 32-12.5 mg Tab] 1 each PO DAILY [History] Doxazosin [Doxazosin Mesylate] 8 mg PO BEDTIME 02/23/14 [History] Cholecalciferol (Vitamin D3) [Vitamin D3] 2,000 unit PO DAILY 02/19/19 [History] Spironolactone [Aldactone] 12.5 mg PO DAILY 02/19/19 [History] - CURRENT (IN HOUSE) MEDS Current Meds: Current Medications Fentanyl (Sublimaze) 50 mcg IVPUSH Q5M PRN PRN Reason: Pain Hydromorphone HCl (Dilaudid) 0.5 mg IVPUSH Q10M PRN PRN Reason: Pain (severe 7-10) Lactated Ringer's (Ringers, Lactated) 1,000 mls @ 100 mls/hr IV ASDIRECTED [facility] Last Admin: 11/01/19 07:16 Dose: 100 mls/hr Morphine Sulfate (Morphine) 1 mg IVPUSH Q4H PRN PRN Reason: Pain (severe 7-10) Ondansetron HCl (Zofran) 4 mg IVPUSH ONETIME PRN PRN Reason: Nausea/Vomiting Discontinued Medications Albuterol (Proventil Hfa) Confirm Administered Dose 6.7 gm INH .STK-MED ONE Stop: 11/01/19 08:09 Albuterol (Proventil Neb Soln) 2.5 mg NEB ONETIME ONE Stop: 11/01/19 08:24 Last Admin: 11/01/19 08:41 Dose: 2.5 mg Bupivacaine HCl (Marcaine 0.5%) Confirm Administered Dose 30 ml .ROUTE .STK-MED ONE Stop: 11/01/19 07:59 Dexamethasone (Dexamethasone) Confirm Administered Dose 20 mg .ROUTE .STK-MED ONE Stop: 11/01/19 08:45 Fentanyl (Sublimaze) Confirm Administered Dose 250 mcg .ROUTE .STK-MED ONE Stop: 11/01/19 08:05 Piperacillin Sod/Tazobactam (Sod 4.5 gm/ Sodium Chloride) 100 mls @ 200 mls/hr IV ONETIME ONE Stop: 11/01/19 05:35 Last Admin: 11/01/19 05:25 Dose: 200 mls/hr Ertapenem 1 gm/ Sodium (Chloride) 50 mls @ 100 mls/hr IV ONETIME ONE Stop: 11/01/19 07:36 Lidocaine HCl (Xylocaine-Mpf 1%) Confirm Administered Dose 4 mls @ as directed .ROUTE .STK-MED ONE Stop: 11/01/19 08:05 Lactated Ringer's (Ringers, Lactated) Confirm Administered Dose 1,000 mls @ as directed .ROUTE .STK-MED ONE Stop: 11/01/19 08:05 Ketamine HCl (Ketalar) Confirm Administered Dose 500 mg .ROUTE .STK-MED ONE Stop: 11/01/19 09:16 Midazolam HCl (Versed 1 Mg/Ml) Confirm Administered Dose 2 mg .ROUTE .STK-MED ONE Stop: 11/01/19 08:05 Ondansetron HCl (Zofran) Confirm Administered Dose 4 mg .ROUTE .STK-MED ONE Stop: 11/01/19 08:05 Propofol (Diprivan 20 Ml) Confirm Administered Dose 400 mg .ROUTE .STK-MED ONE Stop: 11/01/19 08:05 Rocuronium [place] (Zemuron) Confirm Administered Dose 100 mg .ROUTE .STK-MED ONE Stop: 11/01/19 08:06 Sodium Chloride (Normal Saline) Confirm Administered Dose 50 ml .ROUTE .STK-MED ONE Stop: 11/01/19 08:22 Succinylcholine Chloride (Succinylcholine In Ns Pf) Confirm Administered Dose 200 mg .ROUTE .STK-MED ONE Stop: 11/01/19 08:05
[2019-11-01] MEDS ORDERED: Neostigmine Methylsulfate 1 MG/ML 5 ML Syringe ONE (09:47)
[2019-11-01] MEDS ORDERED: fentaNYL 100 MCG/2 ML SDV ONE (09:50)
--- NOTE | 2019-11-01 10:13 | PCM.PRNOTE ---
- Free Text/Narrative Note: Operative Report Operation: laparoscopic appendectomy Date: 11/01/2019 Attending Surgeon: Maximiliano Toth MD Indication for Surgery: acute appendicitis Preoperative antibiotics: 4.5 g zosyn IV VTE prophylaxis: SCDs Estimated Blood Loss: 20 cc Findings: inflamed appendix. The staple line of the mesoappendix was bleeding which required a few minutes of direct pressure with a sponge in order to achieve hemostasis. The operative site was thoroughly irrigated and suctioned and hematoma evacuated. Detailed Report: The patient underwent general endotracheal anesthesia after being placed supine on the operating table and initial timeout. The abdominal hair was clipped and left arm was tucked at the patients side. The abdomen was prepped and draped in sterile fashion. A pre-incision timeout was performed confirming the patient s identity and the operation to be performed. A Veress needle was inserted into the abdominal cavity below the left costal margin along the mid-clavicular line. The abdomen was insufflated with CO2 to 15 mm Hg. Gas was aspirated below the umbilicus with a syringe in order to ensure safe placement of a 12 mm bladed laparoscopic port. The 5mm 30 degree laparoscope was then inserted and viscera inspected. The appendix appeared acutely inflamed without evidence of perforation. Two additional 5 mm ports were placed under direct vision with the laparoscope one along the midline superior to the pubic symphysis and one in the left lower quadrant. The laparoscope was then placed through the left lower quadrant port for optimal visualization. Careful blunt dissection was performed with laparoscopic graspers until the appendix was freed from surrounding inflammatory attachments. The distal portion of the appendix was grasped with a laparoscopic [place] clamp and retracted anteriorly and inferiorly. The [place] grasper was used to create a window in the mesoappendix where the appendix was seen coming off the cecum. A 45 mm laparoscopic stapler with white cartridge was used to divide the appendix flush with the base of the cecum. An additional staple fire was used to divide the mesentery supplying the appendix. The mesenteric staple line was bleeding enough that direct pressure was held for several minutes in order to achieve hemostasis. The specimen was then placed in an Endocatch bag and removed through the umbilical port. The dissection field was irrigated and inspected and appeared hemostatic. Associated hematoma was all evacuated. Omentum was tucked over the staple lines. The larger infraumbilical port was closed at the level of the fascia with vicryl suture using the PMI laparoscopic suture passer. Pneumoperitoneum was then released. All skin incisions were then closed with placement of subcuticular vicryl suture and dressed with dermabond. A total of 10 cc 0.5 % marcaine with epinephrine was used for local anesthesia at the incision sites. The patient tolerated the operation well, was extubated in the operating room and transferred to the PACU for routine post-anesthesia care. Maximiliano Toth MD General Surgery
[2019-11-01] MEDS ORDERED: Ketorolac 30 MG/ML SDV ONE (10:16)
--- NOTE | 2019-11-01 10:26 | PCM.POSTAN ---
POST ANESTHESIA ASSESSMENT - MENTAL STATUS Mental Status: Alert, Oriented, Other (Anxious) - VITAL SIGNS Vital Signs: Last Vital Signs Temp 36.8 C 11/01/19 10:04 Pulse 77 11/01/19 10:04 Resp 15 11/01/19 10:04 BP 131/101 H 11/01/19 10:04 Pulse Ox 99 11/01/19 10:04 - RESPIRATORY Respiratory Status: Respiratory Rate WNL, Airway Patent, O2 Saturation Stable, Supplemental Oxygen - CARDIOVASCULAR CV Status: Pulse Rate WNL, Blood Pressure Stable - GASTROINTESTINAL GI Status: No Symptoms - PAIN Pain Score: 7 (IV medication given) - POST OP HYDRATION Hydration Status: Adequate & Stable
[2019-11-01] MEDS ORDERED: Sodium Chloride 0.9% 1,000 ML IV ONE (12:20)
[2019-11-01] MEDS ORDERED: Sodium Chloride 0.9% 1,000 ML ONE (12:22)
--- NOTE | 2019-11-01 12:33 | PCM.SN ---
- Free Text/Narrative Note: Called by nursing that patient was hypotensive with systolic BP <80 mm Hg. HR 70s, 3 hours after completion of laparoscopic appendectomy. On my assessment, he appears anemic and mildly uncomfortable, though abdominal exam is not abnormal. He did have a hemorrhagic staple line at the mesoappendix that seemed controlled after applying direct pressure in the operating room, and my concern is that he has started to bleed from the staple line site again. Plan for emergent laparoscopic washout and definitive control of hemorrhage. I have ordered 1 L NS bolus, stat CBC, transfuse 2u pRBC after type and crossmatch while preparing for return to OR.
[2019-11-01] MEDS ORDERED: Etomidate 2 MG/ML 20 ML SDV IVPUSH ONE (12:45)
--- NOTE | 2019-11-01 13:39 | PCM.SN ---
- Free Text/Narrative Note: The patient was taken to the OR as per my previous note. On arrival, his skin color had improved, and he had a palpable DP pulse. He was not tachycadic, and repeat BP reading in the OR showed systolic of 120 mm Hg. His abdominal exam was unchanged. A new lab sample was obtained to check for change in Hgb concentration, which was essentially unchanged from prior testing one hour ago. Given all of this, I was convinced the patient was not hemorrhaging as I had worried, but rather had a vasovagal episode. The patient reports having such episodes in the past as well. He was monitored carefully in the OR for about 30 minutes, and was then deemed fit for transfer back to the wards without induction of anesthesia or any operative intervention in the OR. Plan for monitoring on the floor until later this afternoon. If patient continues to do well, discharge to home this evening as originally planned.
--- NOTE | 2019-11-02 09:17 | CT ---
CT abdomen and pelvis Technique: Multiple axial sections were obtained from above the dome of the diaphragm inferiorly through the pubic symphysis. Intravenous and oral contrast was not utilized. Study has been performed as a ureteral stone protocol. Comparison: No prior CT exam, previous abdominal x-ray of 02/19/19. Findings: Appendix is enlarged. Minimal inflammatory change is noted around the appendix. Findings are likely due to appendicitis. Visualized lung bases show nothing acute. Adrenal glands show no nodule. Kidneys show no abnormal calcifications. Low-density cysts are noted within the right kidney with largest cyst measuring about 1.5 cm. No ureteral dilatation or ureteral stone is seen. Aorta shows no aneurysm. Pancreas is within normal limits. Gallbladder contains no calcified gallstones. No retroperitoneal adenopathy or mesenteric abnormalities are seen. No pelvic mass or adenopathy is seen. Small fat-containing bilateral inguinal hernias are noted. Bone window settings were reviewed which show mild scattered degenerative change within the spine. Impression: 1. Findings compatible with early appendicitis. 2. Other findings believed to be incidental as described above. Diagnostic code #5 This report was dictated in [place] Standard Time I agree with preliminary report issued by [facility] (ad report finalized on 11/01/19, 5:44 AM Central Time)
== END 2019-11-01 18:45 | disposition home or self-care (01) ==
LOC: JD.ED 03:09 → JD.SDS 05:25 → JD.MS 11:46 → JD.SDS 18:45
PROVIDERS: ATTEND Surgery
DX: K35.30 Acute appendicitis with localized peritonitis, without perforation or gangrene (principal); I10 Essential (primary) hypertension; Z91.041 Radiographic dye allergy status; Z79.899 Other long term (current) drug therapy
CPT/HCPCS: 36415; 44970; 74176; 80053; 81001; 85014; 85018; 85025; 86850; 86900; 86901; 86922; 93005; 94640; 99285; A9270; J0330; J1100; J1170; J1885; J2001; J2250; J2405; J2543; J2704; J2710; J3010; J3490; J7030; J7050; J7120

== ENCOUNTER 2020-09-29 14:13 | Emergency (ER) | payer OTHER ==
--- NOTE | 2020-09-29 14:58 | EDM.PDOC ---
ED HPI GENERAL MEDICAL PROBLEM - General Chief Complaint: Upper Extremity Injury/Pain Stated Complaint: LT SHOULDER INJURY Time Seen by Provider: 09/29/20 14:16 Source of Information: Reports: Patient, RN Notes Reviewed History Limitations: Reports: No Limitations - History of Present Illness INITIAL COMMENTS - FREE TEXT/NARRATIVE: Patient is a 59-year-old male presenting to the emergency department with complaints of pain to his left shoulder. He states that he was standing on a harden and fell off. He hit the right side of his head on what he thinks was a trailer and then landed on his shoulder. He is complaining of pain to the right shoulder. He did not lose consciousness. Denies any headache, nausea, vomiting, or dizziness. He has had no vision changes. He denies any history of previous injuries to this shoulder. Left Shoulder Pain Score (Numeric/FACES): 2 - Related Data Allergies Allergy/AdvReac Type Severity Reaction Status Date / Time Iodinated Contrast Media Allergy Anaphylactic Verified 09/29/20 14:27 Shock Home Meds: Home Meds Candesartan/Hydrochlorothiazid [Atacand Hct 32-12.5 mg Tab] 1 each PO DAILY 02/23/14 [History] Doxazosin [Doxazosin Mesylate] 8 mg PO BEDTIME 02/23/14 [History] Cholecalciferol (Vitamin D3) [Vitamin D3] 2,000 unit PO DAILY 02/19/19 [History] Spironolactone [Aldactone] 12.5 mg PO DAILY 02/19/19 [History] Acetaminophen/HYDROcodone [[place] 325-5 MG] 1 tab PO Q4H PRN #10 tablet 09/29/20 [Rx] Past Medical History HEENT History: Reports: Other (See Below) Other HEENT History: deviated septum surgery Cardiovascular History: Reports: Hypertension Genitourinary History: Reports: Prostate Disorder - Past Surgical History HEENT Surgical History: Reports: Naso-Sinus Surgery GI Surgical History: Reports: Appendectomy Social & Family History - Family History Family Medical History: No Pertinent Family History - Tobacco Use Tobacco Use Status *Q: Never Tobacco User - Caffeine Use Caffeine Use: Reports: Coffee - Recreational Drug Use Recreational Drug Use: No Review of Systems - Review of Systems Review Of Systems: See Below Constitutional: Reports: No Symptoms. Denies: Chills, Fever Eyes: Reports: No Symptoms. Denies: Vision Change Ears: Reports: No Symptoms Nose: Reports: No Symptoms Mouth/Throat: Reports: No Symptoms Respiratory: Reports: No Symptoms Cardiovascular: Reports: No Symptoms GI/Abdominal: Reports: No Symptoms Genitourinary: Reports: No Symptoms Musculoskeletal: Reports: Other (Left shoulder pain/deformity). Denies: Neck Pain, Back Pain Skin: Reports: No Symptoms Neurological: Reports: No Symptoms. Denies: Dizziness, Headache Psychiatric: Reports: No Symptoms ED EXAM, GENERAL - Physical Exam Exam: See Below Exam Limited By: No Limitations General Appearance: Alert, WD/WN, No Apparent Distress Eye Exam: Bilateral Eye: PERRL Head: Other (Small hematoma to the right frontal head) Neck: Normal Inspection, Supple, Non-Tender, Full Range of Motion Respiratory/Chest: No Respiratory Distress, Lungs Clear, Normal Breath Sounds, No Accessory Muscle Use, Chest Non-Tender Cardiovascular: Normal Peripheral Pulses, Regular Rate, Rhythm, No Edema, No Gallop, No JVD, No Murmur, No Rub Back Exam: Normal Inspection, Full Range of Motion, NT Extremities: Other (Obvious deformity of the right AC joint) Neurological: Alert, Oriented, CN II-XII Intact, Normal Cognition, Normal Gait, Normal Reflexes, No Motor/Sensory Deficits Psychiatric: Normal Affect, Normal Mood Skin Exam: Warm, Dry, Intact, Normal Color, No Rash Course - Vital Signs Last Recorded V/S: Last Vital Signs Temp 97.6 F 09/29/20 14:23 Pulse 66 09/29/20 14:23 Resp 16 09/29/20 14:23 BP 154/94 H 09/29/20 14:23 Pulse Ox 97 09/29/20 14:23 - Orders/Labs/Meds Orders: Active Orders 24 hr Category Date Time Status Shoulder Comp Lt [CR] Stat Exams 09/29/20 14:32 Taken DME for Discharge [COMM] Routine Oth 09/29/20 14:48 Ordered - Re-Assessments/Exams Free Text/Narrative Re-Assessment/Exam: Patient is a 59-year-old male presenting to the emergency department with complaints of left shoulder pain after falling from a harden and landing on his shoulder. He states that he thinks he hit the right side of the head on a trailer as he was falling. He did not have loss of consciousness. Denies any headache, nausea, vomiting, or vision changes. On exam, he has obvious deformity over the AC joint. My suspicion is that he has AC joint separation. I have ordered x-rays of the left shoulder. Neurologic exam is normal Discussed that we do not feel the CT scans are indicated at this time and he is in agreement. 09/29/20 14:59 X-ray of the left shoulder shows an separation of the AC joint. He has been given a sling. I will send a referral to Dr. Yun for follow-up. Patient states that if this surgery is required, he may have to go to [place] as he has better insurance coverage there. We we will send him with a disc of his x-ray images in case he does have to go to [place]. I will write a prescription for [place] for pain as needed in addition to Tylenol and ibuprofen routinely. Recommend ice over the area of discomfort. Wear the sling at all times while awake. Discharge instructions as documented. Departure - Departure Time of Disposition: 15:01 Disposition: Home, Self-Care 01 Condition: Good Clinical Impression: AC separation Qualifiers: Encounter type: initial encounter Laterality: left Qualified Code(s): S43.102A - Unspecified dislocation of left acromioclavicular joint, initial encounter - Discharge Information Prescriptions: Acetaminophen/HYDROcodone [[place] 325-5 MG] 1 tab PO Q4H PRN #10 tablet PRN Reason: Pain Instructions: Acromioclavicular Separation Referrals: Dominick Milton MD [Primary Care Provider] - Vitor Yun MD [Physician] - Additional Instructions: You were seen in the emergency department today for pain to your left shoulder after falling off a harden. X-rays were completed of your shoulder and show that you have a separation of your acromioclavicular joint. You have been provided with a sling. Would recommend that she wear this at all times while awake. Take Tylenol and ibuprofen routinely for pain. For pain not relieved by those measures, a prescription for [place] has been provided. Do not work or drive for 12 hours after taking this medication as it can be sedating. Recommend that you ice over the area of discomfort intermittently for the next few days. If you should develop any concerning neurologic symptoms such as headache, nausea, vomiting, dizziness, or vision changes, I would recommend that she return to the emergency department for reevaluation with regards to hitting your head. A referral has been sent to Dr. Yun, orthopedist. Recommend that you call his office to set up a follow-up appointment. You have also been prov ided with a disc of your x-ray images should you decide that she need to go to [place] for treatment. If you should experience any new or worsening symptoms of concern, please not hesitate to return to the emergency department for reevaluation. Sepsis Event Note (ED) - Evaluation Sepsis Screening Result: No Definite Risk - Focused Exam Vital Signs: Vital Signs Temp Pulse Resp BP Pulse Ox 09/29/20 14:23 97.6 F 66 16 154/94 H 97 - My Orders Last 24 Hours: My Active Orders 09/29/20 14:32 Shoulder Comp Lt [CR] Stat 09/29/20 14:48 DME for Discharge [COMM] Routine - Assessment/Plan Last 24 Hours: My Active Orders 09/29/20 14:32 Shoulder Comp Lt [CR] Stat 09/29/20 14:48 DME for Discharge [COMM] Routine
--- NOTE | 2020-09-29 15:49 | CR ---
PROCEDURE INFORMATION: Exam: XR Left Shoulder Exam date and time: 09/29/2020 2:38 PM Age: 59 years old Clinical indication: Pain and injury or trauma; Fall; Dislocation; Severity not specified; Clavicle or acromioclavicular and shoulder; Left; Injury date: 09/29/2020; Injury details: Pain and deformity; Fell and landed on shoulder TECHNIQUE: Imaging protocol: XR Left shoulder. Views: 2 or more views. COMPARISON: No relevant prior studies available. FINDINGS: Bones/joints: The left distal clavicle is elevated 1 1/2 shaft width with respect to the acromion. The coracoclavicular interval is 2.1 cm, abnormal. No fracture. Soft tissues: Normal. IMPRESSION: High-grade left shoulder separation injury without fracture. Both acromioclavicular and coracoclavicular intervals are pathologically widened/abnormal. Thank you for allowing us to participate in the care of your patient. Dictated and Authenticated by: Oscar Mclean MD 09/29/2020 4:41 PM Central Time ([place] & [place]) [facility]
== END 2020-09-29 15:25 | disposition home or self-care (01) ==
LOC: JD.ED 14:13
DX: S43.102A Unspecified dislocation of left acromioclavicular joint, initial encounter (principal); I10 Essential (primary) hypertension; Z91.041 Radiographic dye allergy status; Z79.899 Other long term (current) drug therapy; W17.89XA Other fall from one level to another, initial encounter
CPT/HCPCS: 73030-26-LT; 73030-LT; 99283; 99283-25

== ENCOUNTER 2020-10-25 11:41 | Emergency (ER) | payer OTHER ==
--- NOTE | 2020-10-25 12:13 | EDM.PDOC ---
ED HPI GENERAL MEDICAL PROBLEM - General Chief Complaint: General Stated Complaint: LETHARGIC/SICK FOR 9 DAYS Time Seen by Provider: 10/25/20 11:57 Source of Information: Reports: Patient History Limitations: Reports: No Limitations - History of Present Illness INITIAL COMMENTS - FREE TEXT/NARRATIVE: 59-year-old male presents to the ED not feeling well for the last 9 days. He s jackie illness began last October 17. Started with high fever of 100.8 degrees. Headache, generalized myalgia and then loss of appetite. Mild sore throat initially.. He did start coughing for about 5 days minimally productive. Severe loss of appetite. Did eat supper last night. Had initially mild diarrhea but none for 2 days. Occasional nausea. Generalized weakness. He has a pulse oximeter at home and sats have been ranging 92 to 94% on room air but as soon as he does anything he desaturates into the 86 percentile. Feels lightheaded and dizzy upon standing. He works as a restaurant associate and has no idea where he would have contracted the virus. Onset: Sudden Onset Date: 10/17/20 Duration: Day(s):, Constant, Getting Worse Location: Reports: Chest (Generalized weakness and hypoxia at rest. Minimally productive cough.), Generalized, Other (Fever seems to have gone away.) Quality: Reports: Ache, Other (Neurolyse myalgia) Severity: Moderate (weak and dizzy.) Improves with: Reports: Rest (Oxygen sats come up above 94%) Worsens with: Reports: Movement ( at rest. When he is he does any exertion he will desaturate as low as 86%.) Context: Denies: Activity, Exercise, Lifting, Sick Contact, Trauma, Other Associated Symptoms: Reports: Cough, cough w sputum, Diaphoresis ( For first 5 days of illness. Apheresis cold sweat last), Fever/Chills (Devika but not bad the last few days.), Headaches, Loss of Appetite (Occasional white sputum), Malaise, Nausea/Vomiting ( night and this morning), Shortness of Breath, Other (Occasional loose stools but none for 2 days occasional mild nausea without vomiting). Denies: Confusion, Chest Pain Treatments BIT SANDER: Reports: Acetaminophen, NSAIDS (And Motrin alternating for the last several days) - Related Data Allergies Allergy/AdvReac Type Severity Reaction Status Date / Time Iodinated Contrast Media Allergy Anaphylactic Verified 10/25/20 12:04 Shock Home Meds: Home Meds Candesartan/Hydrochlorothiazid [Atacand Hct 32-12.5 mg Tab] 1 each PO DAILY 02/23/14 [History] Doxazosin [Doxazosin Mesylate] 8 mg PO BEDTIME 02/23/14 [History] Cholecalciferol (Vitamin D3) [Vitamin D3] 2,000 unit PO DAILY 02/19/19 [History] Spironolactone [Aldactone] 12.5 mg PO DAILY 02/19/19 [History] Acetaminophen/HYDROcodone [[place] 325-5 MG] 1 tab PO Q4H PRN #10 tablet 09/29/20 [Rx] dexAMETHasone [Dexamethasone] 4 mg PO ASDIRECTED #15 tablet 10/25/20 [Rx] Past Medical History HEENT History: Reports: Other (See Below) Other HEENT History: deviated septum surgery Cardiovascular History: Reports: Hypertension Genitourinary History: Reports: BPH, Prostate Disorder - Past Surgical History HEENT Surgical History: Reports: Naso-Sinus Surgery GI Surgical History: Reports: Appendectomy Social & Family History - Family History Family Medical History: No Pertinent Family History - Caffeine Use Caffeine Use: Reports: Coffee - Living Situation & Occupation Living situation: Reports: Occupation: Employed (Works as a restaurant associate.) [facility] GENER[facility] - Review of Systems Review Of Systems: See Below Constitutional: Reports: Fever, Chills (With initial onset of illness ), Malaise, Weakness (for the first 5 days of illness.), Fatigue, Decreased Appetite, Weight Loss HEENT: Reports: Other (Minimally sore throat. Minimal nasal congestion. Has retained his sense of taste and smell.) Respiratory: Reports: Shortness of Breath, Cough, Sputum. Denies: Wheezing, Pleuritic Chest Pain, Hemoptysis (Occasional white sputum) Cardiovascular: Reports: Blood Pressure Problem (Has a history of hypertension. He has not been taking), Dyspnea on Exertion, Lightheadedness. Denies: Claudication, Edema, Orthopnea ( his blood pressure medicine the last few days since has been running so low.), Palpitations Endocrine: Reports: Fatigue GI/Abdominal: Reports: Diarrhea (Mild diarrhea initial part of illness none for 2 days), Decreased Appetite, Nausea : Reports: No Symptoms Musculoskeletal: Reports: Muscle Pain (General mild myalgia has for the most part improved.) Skin: Reports: No Symptoms Neurological: Reports: Dizziness, Weakness Psychiatric: Reports: No Symptoms Hematologic/Lymphatic: Reports: No Symptoms Immunologic: Reports: No Symptoms ED EXAM, GENERAL - Physical Exam Exam: See Below Exam Limited By: No Limitations General Appearance: Alert, WD/WN, No Apparent Distress, Other (Temperature is 36.4 with pulse of 67 and sinus respiratory is 18 BP 128/80 O2 sats 92 to 94% and then slowly came up to 97%) Eye Exam: Bilateral Eye: Normal Inspection (No blepharal pallor or scleral icterus.), PERRL Ears: Normal TMs Throat/Mouth: Normal Inspection, Normal Lips, Normal Oropharynx, Other Head: Atraumatic, Normocephalic (Tongue is mildly dry and coated), Other Neck: Normal Inspection (No outward signs of head or facial trauma), Supple, Non-Tender, Full Range of Motion. No: Lymphadenopathy (L), Lymphadenopathy (R) Respiratory/Chest: No Respiratory Distress, Lungs Clear, Normal Breath Sounds, No Accessory Muscle Use Cardiovascular: Normal Peripheral Pulses, Regular Rate, Rhythm, No Edema, No Gallop, No Murmur, No Rub Peripheral Pulses: 2+: Carotid (L), Carotid (R), Posterior Tibial (L), Posterior Tibial (R), Dorsalis Pedis (L), Dorsalis Pedis (R) GI/Abdominal: Normal Bowel Sounds, Soft, Non-Tender, No Organomegaly, No Mass, Pelvis Stable, Other (Appendectomy scar.) Back Exam: Normal Inspection, Full Range of Motion. No: CVA Tenderness (L), CVA Tenderness (R) Extremities: Normal Inspection, Normal Range of Motion, Non-Tender, No Pedal Edema, Normal Capillary Refill Neurological: Alert, Oriented, CN II-XII Intact, Normal Cognition, Normal Gait Psychiatric: Normal Affect, Normal Mood Skin Exam: Warm, Dry, Intact, Normal Color, No Rash #1 Interpretation EKG Date: 10/25/20 Time: 13:00 Rhythm: NSR Rate (Beats/Min): 69 Hansen: LAD-Left Hansen Deviation (Left axis deviation of -20 degrees.) P-Wave: Present (First-degree AV block left atrial hypertrophy pattern) QRS: Other (There are Q waves leads III and aVF compared with old inferior wall myocardial infarction. There is also a Q wave in V1 V2 suggesting old anterior septal myocardial infarction.) EKG Interpretation Comments: Abnormal ECG Course - Vital Signs Last Recorded V/S: Last Vital Signs Temp 36.4 C 10/25/20 11:50 Pulse 67 10/25/20 11:50 Resp 18 10/25/20 11:50 BP 128/80 10/25/20 11:50 Pulse Ox 97 10/25/20 11:50 - Orders/Labs/Meds Orders: Active Orders 24 hr Category Date Time Status EKG Documentation Completion [RC] STAT Care 10/25/20 12:20 Active Vital Signs [RC] Q15M Care 10/25/20 13:37 Active EPINEPHrine [EPINEPHrine 1:10,000] Med 10/25/20 13:37 Active 0.3 mg IM ONETIME PRN Famotidine [Pepcid] Med 10/25/20 13:37 Active 20 mg IVPUSH ONETIME PRN Lactated Ringers [Ringers, Lactated] 1,000 ml Med 10/25/20 12:15 Active IV ASDIRECTED Sodium Chloride 0.9% [Saline Flush] Med 10/25/20 13:45 Active 30 ml FLUSH ASDIRECTED diphenhydrAMINE [Benadryl] Med 10/25/20 13:37 Active 50 mg IVPUSH ONETIME PRN Medication Orders Diphenhydramine HCl (Benadryl) 50 mg IVPUSH ONETIME PRN PRN Reason: hypersensitivity reaction Epinephrine HCl (Epinephrine 1:10,000) 0.3 mg IM ONETIME PRN PRN Reason: hypersensitivity reaction Famotidine (Pepcid) 20 mg IVPUSH ONETIME PRN PRN Reason: hypersensitivity reaction Lactated Ringer's (Ringers, Lactated) 1,000 mls @ 500 mls/hr IV ASDIRECTED CHARU Last Admin: 10/25/20 12:31 Dose: 500 mls/hr Documented by: CECILIO Sodium Chloride (Saline Flush) 30 ml FLUSH ASDIRECTED CHARU Last Admin: 10/25/20 15:40 Dose: 30 ml Documented by: CECILIO Labs: Laboratory Tests 10/25/20 10/25/20 10/25/20 Range/Units 12:25 12:25 12:25 WBC 3.04 L (4.23-9.07) K/mm3 RBC 5.01 (4.63-6.08) M/mm3 Hgb 14.5 D (13.7-17.5) gm/dl Hct 44.0 (40.1-51.0) % MCV 87.8 (79.0-92.2) fl MCH 28.9 (25.7-32.2) pg MCHC 33.0 (32.2-35.5) g/dl RDW Std Deviation 41.5 (35.1-43.9) fL Plt Count 111 L (163-337) K/mm3 MPV 10.3 (9.4-12.3) fl Neut % (Auto) 70.8 H (34.0-67.9) % Lymph % (Auto) 14.5 L (21.8-53.1) % [place] % (Auto) 14.1 H (5.3-12.2) % Eos % (Auto) 0.3 L (0.8-7.0) Baso % (Auto) 0.0 L (0.1-1.2) % Neut # (Auto) 2.15 (1.78-5.38) K/mm3 Lymph # (Auto) 0.44 L (1.32-3.57) K/mm3 [place] # (Auto) 0.43 (0.30-0.82) K/mm3 Eos # (Auto) 0.01 L (0.04-0.54) K/mm3 Baso # (Auto) 0.00 L (0.01-0.08) K/mm3 PT 11.3 (9.7-12.0) SECONDS INR 1.06 APTT 34.7 H (21.7-31.4) SECONDS D-Dimer, Quantitative 0.37 (0.19-0.50) mg/L Sodium 130 L D (136-145) mEq/L Potassium 3.7 (3.5-5.1) mEq/L Chloride 96 L (98-107) mEq/L Carbon Dioxide 23 (21-32) mEq/L Anion Gap 14.7 (5-15) BUN 16 (7-18) mg/dL Creatinine 1.2 (0.7-1.3) mg/dL Est Cr Clr Drug Dosing 68.85 mL/min Estimated GFR (MDRD) > 60 (>60) mL/min BUN/Creatinine Ratio 13.3 L (14-18) Glucose 108 (80-115) mg/dL Serum Osmolality (280-300) mosm/kg Lactic Acid (0.4-2.0) mmol/L Calcium 8.6 (8.5-10.1) mg/dL Magnesium 1.9 (1.8-2.4) mg/dl Ferritin (26-388) ng/ml Total Bilirubin 0.5 (0.2-1.0) mg/dL AST 46 H (15-37) U/L ALT 87 H (16-63) U/L Alkaline Phosphatase 61 (46-116) U/L Lactate Dehydrogenase 179 (85-227) U/L Troponin I < 0.017 (0.00-0.056) ng/mL C-Reactive Protein 0.9 (<1.0) mg/dL NT-Pro-B Natriuret Pep (0-125) pg/mL Total Protein 7.1 (6.4-8.2) g/dl Albumin 3.4 (3.4-5.0) g/dl Globulin 3.7 gm/dL Albumin/Globulin Ratio 0.9 L (1-2) Urine Color (Yellow) Urine Appearance (Clear) Urine pH (5.0-8.0) Ur Specific [place] (1.005-1.030) Urine Protein (Negative) Urine Glucose (UA) (Negative) Urine Ketones (Negative) Urine Occult Blood (Negative) Urine Nitrite (Negative) Urine Bilirubin (Negative) Urine Urobilinogen (0.2-1.0) Ur Leukocyte Esterase (Negative) Urine RBC (0-5) /hpf Urine WBC (0-5) /hpf Ur Squamous Epith Cells (0-5) /hpf Urine Bacteria (FEW) /hpf Urine Mucus (FEW) /hpf SARS-CoV-2 RNA (EDDIE) (NEGATIVE) 10/25/20 10/25/20 10/25/20 Range/Units 12:25 12:25 12:25 WBC (4.23-9.07) K/mm3 RBC (4.63-6.08) M/mm3 Hgb (13.7-17.5) gm/dl Hct (40.1-51.0) % MCV (79.0-92.2) fl MCH (25.7-32.2) pg MCHC (32.2-35.5) g/dl RDW Std Deviation (35.1-43.9) fL Plt Count (163-337) K/mm3 MPV (9.4-12.3) fl Neut % (Auto) (34.0-67.9) % Lymph % (Auto) (21.8-53.1) % [place] % (Auto) (5.3-12.2) % Eos % (Auto) (0.8-7.0) Baso % (Auto) (0.1-1.2) % Neut # (Auto) (1.78-5.38) K/mm3 Lymph # (Auto) (1.32-3.57) K/mm3 [place] # (Auto) (0.30-0.82) K/mm3 Eos # (Auto) (0.04-0.54) K/mm3 Baso # (Auto) (0.01-0.08) K/mm3 PT (9.7-12.0) SECONDS INR APTT (21.7-31.4) SECONDS D-Dimer, Quantitative (0.19-0.50) mg/L Sodium (136-145) mEq/L Potassium (3.5-5.1) mEq/L Chloride (98-107) mEq/L Carbon Dioxide (21-32) mEq/L Anion Gap (5-15) BUN (7-18) mg/dL Creatinine (0.7-1.3) mg/dL Est Cr Clr Drug Dosing mL/min Estimated GFR (MDRD) (>60) mL/min BUN/Creatinine Ratio (14-18) Glucose (80-115) mg/dL Serum Osmolality (280-300) mosm/kg Lactic Acid 0.8 (0.4-2.0) mmol/L Calcium (8.5-10.1) mg/dL Magnesium (1.8-2.4) mg/dl Ferritin 1928 H (26-388) ng/ml Total Bilirubin (0.2-1.0) mg/dL AST (15-37) U/L ALT (16-63) U/L Alkaline Phosphatase (46-116) U/L Lactate Dehydrogenase (85-227) U/L Troponin I (0.00-0.056) ng/mL C-Reactive Protein (<1.0) mg/dL NT-Pro-B Natriuret Pep 24 (0-125) pg/mL Total Protein (6.4-8.2) g/dl Albumin (3.4-5.0) g/dl Globulin gm/dL Albumin/Globulin Ratio (1-2) Urine Color (Yellow) Urine Appearance (Clear) Urine pH (5.0-8.0) Ur Specific [place] (1.005-1.030) Urine Protein (Negative) Urine Glucose (UA) (Negative) Urine Ketones (Negative) Urine Occult Blood (Negative) Urine Nitrite (Negative) Urine Bilirubin (Negative) Urine Urobilinogen (0.2-1.0) Ur Leukocyte Esterase (Negative) Urine RBC (0-5) /hpf Urine WBC (0-5) /hpf Ur Squamous Epith Cells (0-5) /hpf Urine Bacteria (FEW) /hpf Urine Mucus (FEW) /hpf SARS-CoV-2 RNA (EDDIE) (NEGATIVE) 10/25/20 10/25/20 10/25/20 Range/Units 12:25 12:35 13:10 WBC (4.23-9.07) K/mm3 RBC (4.63-6.08) M/mm3 Hgb (13.7-17.5) gm/dl Hct (40.1-51.0) % MCV (79.0-92.2) fl MCH (25.7-32.2) pg MCHC (32.2-35.5) g/dl RDW Std Deviation (35.1-43.9) fL Plt Count (163-337) K/mm3 MPV (9.4-12.3) fl Neut % (Auto) (34.0-67.9) % Lymph % (Auto) (21.8-53.1) % [place] % (Auto) (5.3-12.2) % Eos % (Auto) (0.8-7.0) Baso % (Auto) (0.1-1.2) % Neut # (Auto) (1.78-5.38) K/mm3 Lymph # (Auto) (1.32-3.57) K/mm3 [place] # (Auto) (0.30-0.82) K/mm3 Eos # (Auto) (0.04-0.54) K/mm3 Baso # (Auto) (0.01-0.08) K/mm3 PT (9.7-12.0) SECONDS INR APTT (21.7-31.4) SECONDS D-Dimer, Quantitative (0.19-0.50) mg/L Sodium (136-145) mEq/L Potassium (3.5-5.1) mEq/L Chloride (98-107) mEq/L Carbon Dioxide (21-32) mEq/L Anion Gap (5-15) BUN (7-18) mg/dL Creatinine (0.7-1.3) mg/dL Est Cr Clr Drug Dosing mL/min Estimated GFR (MDRD) (>60) mL/min BUN/Creatinine Ratio (14-18) Glucose (80-115) mg/dL Serum Osmolality 274 L (280-300) mosm/kg Lactic Acid (0.4-2.0) mmol/L Calcium (8.5-10.1) mg/dL Magnesium (1.8-2.4) mg/dl Ferritin (26-388) ng/ml Total Bilirubin (0.2-1.0) mg/dL AST (15-37) U/L ALT (16-63) U/L Alkaline Phosphatase (46-116) U/L Lactate Dehydrogenase (85-227) U/L Troponin I (0.00-0.056) ng/mL C-Reactive Protein (<1.0) mg/dL NT-Pro-B Natriuret Pep (0-125) pg/mL Total Protein (6.4-8.2) g/dl Albumin (3.4-5.0) g/dl Globulin gm/dL Albumin/Globulin Ratio (1-2) Urine Color Yellow (Yellow) Urine Appearance Clear (Clear) Urine pH 7.0 (5.0-8.0) Ur Specific [place] 1.020 (1.005-1.030) Urine Protein Negative (Negative) Urine Glucose (UA) Negative (Negative) Urine Ketones 1+ H (Negative) Urine Occult Blood Negative (Negative) Urine Nitrite Negative (Negative) Urine Bilirubin Negative (Negative) Urine Urobilinogen 0.2 (0.2-1.0) Ur Leukocyte Esterase Negative (Negative) Urine RBC Not seen (0-5) /hpf Urine WBC 0-5 (0-5) /hpf Ur Squamous Epith Cells 0-5 (0-5) /hpf Urine Bacteria Few (FEW) /hpf Urine Mucus Not seen (FEW) /hpf SARS-CoV-2 RNA (EDDIE) Positive H (NEGATIVE) Meds: Medications Generic Name Dose Route Start Last Admin Trade Name Freq PRN Reason Stop Dose Admin Diphenhydramine HCl 50 mg 10/25/20 13:37 Benadryl IVPUSH ONETIME PRN hypersensitivity reaction Epinephrine HCl 0.3 mg 10/25/20 13:37 Epinephrine 1:10,000 IM ONETIME PRN hypersensitivity reaction Famotidine 20 mg 10/25/20 13:37 Pepcid IVPUSH ONETIME PRN hypersensitivity reaction Lactated Ringer's 1,000 mls @ 500 mls/hr 10/25/20 12:15 10/25/20 12:31 Ringers, Lactated IV 500 mls/hr ASDIRECTED CHARU Administration Sodium Chloride 30 ml 10/25/20 13:45 10/25/20 15:40 Saline Flush FLUSH 30 ml ASDIRECTED CHARU Administration Discontinued Medications Generic Name Dose Route Start Last Admin Trade Name Freq PRN Reason Stop Dose Admin Dexamethasone 6 mg 10/25/20 13:37 10/25/20 14:07 Decadron IVPUSH 10/25/20 13:38 6 mg ONETIME ONE Administration Non-Formulary Medication 1,200 250 mls @ 250 mls/hr 10/25/20 13:37 10/25/20 14:34 mg/ Non-Formulary Medication IV 10/25/20 14:36 250 mls/hr 1,200 mg/ Sodium Chloride ONETIME ONE Administration Methylprednisolone Sodium Succinate 125 mg 10/25/20 13:37 Solu-Medrol IVPUSH ONETIME PRN hypersensitivity reaction - Radiology Interpretation Free Text/Narrative:: 59-year-old male presents to the ED with a 9-day history of illness which has all the signs and symptoms of COVID-19 illness. Desaturates to 86% with walking. O2 sats initially were 92% but have slowly improved to 97% without oxygen supplementation. He feels weak and dizzy. Has not been able to eat or drink much for the last several days. Did have mild diarrhea. Occasional nausea. Plan chest x-ray serum labs and ideally a COVID-19 screen. He would be a candidate for Regeneron. - Re-Assessments/Exams Free Text/Narrative Re-Assessment/Exam: 10/25/20 12:43 chest x-ray done portably reveals heart size to be within normal limits for portable technique. Mediastinum is normal. Minimal linear density is seen within the left lateral costophrenic angle. Minimal infiltrate right perihilar area as well. Mild scoliosis is noted within the spine. 10/25/20 13:03 White blood cell count came back low at 3.04. The auto differential shows 70.8% neutrophils. Hemoglobin 14.5 with hematocrit of 44.0. Platelet count is low at 111,000. 10/25/20 13:21 PT is 11.3 with an INR of 1.06. PTT is slightly elevated at 34.7. D-dimer is normal at 0.37. Sodium is low at 130 with a potassium of 3.7. Chloride is 96 with a bicarb of 23. Anion gap is 14.7. BUN is 16 with a creatinine of 1.2 and a GFR greater than 60. Glucose is 108. Lactic acid is 0.8. Calcium is 8.6. Magnesium 1.9. Bilirubin is 0.5 with slightly elevated AST at 46 and an ALT of 87. Alkaline phosphatase is 61. LDH is 179 troponin I is less than 0.017. C-reactive protein 0.9 10/25/20 13:35 patient's COVID-19 screen did come back positive. I will therefore proceed with dexamethasone 6 mg IV bolus. Spoke with him at length about use of Regeneron to give the monoclonal antibodies and he certainly willin g to accept the medication even though it is still considered an experimental medication. Qualifies as he is greater than 55 years of age and has hypertension. Patient has been given the fact sheet on Regeneron. I have spoken with Mr. Carl Leary to provide information about Regeneron treatment for himself. I offered him the patient and caregiver EUA Regeneron fax sheet to read and review. I stated the drug has been approved by an emergency use authorization process and has not been fully FDA reviewed or approved. The patient meets the EUA requirements due to age and hypertension. I discussed there are other potential treatment options that are currently not FDA approved to treat COVID-19 illness. Offered opportunity ask questions and all questions were answered. Mr. Carl Reina a lot voiced understanding and agreed to proceed with treatment for himself. 10/25/20 15:18 patient is at least usp through his Regeneron infusion and is doing well with no side effects. 10/25/20 16:43 and tolerated the Regeneron infusion with no ill effects whatsoever. He will be therefore discharged to home on continued use of steroid dexamethasone 4 mg a.m. and p.m. for 5 days and then once in the morning only for another 4 days. Return if he has any further problems such as drops in his oxygen saturation. Departure - Departure Time of Disposition: 16:43 Disposition: Home, Self-Care 01 Condition: Fair Clinical Impression: COVID-19 determined by clinical diagnostic criteria - Discharge Information *PRESCRIPTION DRUG MONITORING PROGRAM REVIEWED*: Not Applicable *COPY OF PRESCRIPTION DRUG MONITORING REPORT IN PATIENT RAMYA: Not Applicable Prescriptions: dexAMETHasone [Dexamethasone] 4 mg PO ASDIRECTED #15 tablet Instructions: COVID-19, Prevent the Spread of COVID-19 if You Are Sick - [facility] Referrals: Dominick Milton MD [Primary Care Provider] - Forms: ED Department Discharge Additional Instructions: Evaluation in the emergency room today in regards to 8 to 9 days of illness starting with high fever, headache, generalized myalgia or muscle pain. Subsequent development of a paroxysmal cough that is minimally productive with minimal diarrhea and severe loss of appetite. He is are all signs and symptoms of COVID-19 illness and your testing prove that you do have COVID-19 illness. Chest x-ray did not reveal any signs of a active viral pneumonia at this time. Oxygen saturations were lower today than they have been at home but as long as they stay above 90 at rest you would not have to return to the hospital. You were treated today with intravenous dexamethasone 6 mg IV. You will need to start dexamethasone tablets tomorrow morning 4 mg with breakfast and supper for 5 days and then once in the morning for another 5 days. He also received double monoclonal antibody treatment called Regeneron intravenously while in the emergency department which gives you passive immunity and helps the Covid virus not be able to replicate within your body and hopefully speeds up your recovery. You would need to return to the hospital if you continue to get worse with decreased oxygen levels or complete inability to eat etc. Patients are usually worse from day 8-11 of illness and you are currently on about day 9. Hopefully will improve over the next 48 hours as from the steroids intravenously alone. You should still be self quarantine for a minimum of 14 days from the time of onset of illness. You may find that returning to work too early causes overwhelming fatigue and you may end up having to take another week to recover from COVID-19 before you are able to fully carry at all the duties of your job. Sepsis Event Note (ED) - Evaluation Sepsis Screening Result: No Definite Risk - Focused Exam Vital Signs: Vital Signs Temp Pulse Resp BP Pulse Ox 10/25/20 11:50 36.4 C 67 18 128/80 97 - My Orders Last 24 Hours: My Active Orders 10/25/20 12:15 Lactated Ringers [Ringers, Lactated] 1,000 ml IV ASDIRECTED 10/25/20 12:20 EKG Documentation Completion [RC] STAT 10/25/20 13:37 Vital Signs [RC] Q15M EPINEPHrine [EPINEPHrine 1:10,000] 0.3 mg IM ONETIME PRN Famotidine [Pepcid] 20 mg IVPUSH ONETIME PRN diphenhydrAMINE [Benadryl] 50 mg IVPUSH ONETIME PRN 10/25/20 13:45 Sodium Chloride 0.9% [Saline Flush] 30 ml FLUSH ASDIRECTED - Assessment/Plan Last 24 Hours: My Active Orders 10/25/20 12:15 Lactated Ringers [Ringers, Lactated] 1,000 ml IV ASDIRECTED 10/25/20 12:20 EKG Documentation Completion [RC] STAT 10/25/20 13:37 Vital Signs [RC] Q15M EPINEPHrine [EPINEPHrine 1:10,000] 0.3 mg IM ONETIME PRN Famotidine [Pepcid] 20 mg IVPUSH ONETIME PRN diphenhydrAMINE [Benadryl] 50 mg IVPUSH ONETIME PRN 10/25/20 13:45 Sodium Chloride 0.9% [Saline Flush] 30 ml FLUSH ASDIRECTED
[2020-10-25] MEDS ORDERED: Lactated Ringers 1,000 ML IV SCH (12:15)
--- NOTE | 2020-10-25 12:36 | CR ---
Chest: Portable view of the chest was obtained. Comparison: No prior chest imaging is available. Heart size is within normal limits for portable technique. Mediastinum is also within normal limits. Minimal linear density is seen within the lateral left costophrenic angle. Lungs otherwise are clear. Mild scoliosis is noted within the spine. Impression: 1. Findings as noted above. Nothing acute is appreciated. Diagnostic code #2
[2020-10-25] MEDS ORDERED: Casirivimab 1,200 MG, Imdevimab 1,200 MG in Sodium Chloride 0.9% 230 ML IV ONE (13:37)
[2020-10-25] MEDS ORDERED: methylPREDNISolone Sodium Succinate 125 MG/2 ML SDV IVPUSH PRN (13:37)
[2020-10-25] MEDS ORDERED: Dexamethasone 10 MG/ML SDV IVPUSH ONE (13:37)
[2020-10-25] MEDS ORDERED: diphenhydrAMINE 50 MG/ML SDV IVPUSH PRN (13:37)
[2020-10-25] MEDS ORDERED: Famotidine 20 MG/2 ML SDV IVPUSH PRN (13:37)
[2020-10-25] MEDS ORDERED: EPINEPHrine 1:10,000 1 MG/10 ML Syringe IM PRN (13:37)
[2020-10-25] MEDS ORDERED: Sodium Chloride 0.9% 10 ML Syringe FLUSH SCH (13:45)
== END 2020-10-25 16:50 | disposition home or self-care (01) ==
LOC: JD.ED 11:41
DX: U07.1 COVID-19 (principal); I44.0 Atrioventricular block, first degree; I10 Essential (primary) hypertension; Z91.041 Radiographic dye allergy status; Z79.899 Other long term (current) drug therapy
CPT/HCPCS: 36415; 71045; 80053; 81001; 82728; 83605; 83615; 83735; 83880; 83930; 84484; 85025; 85379; 85610; 85730; 86140; 87635; 93005; 96374; 99285; J1100; J7050; J7120; M0243; 93010; 99284; U0002

== ENCOUNTER 2021-12-28 03:33 | Emergency (ER) | payer BC, OTHER | END 2021-12-28 05:10 | disposition home or self-care (01) | LOC: JD.ED 03:33 | DX: R00.2 Palpitations (principal); M79.602 Pain in left arm; I10 Essential (primary) hypertension; N40.0 Benign prostatic hyperplasia without lower urinary tract symptoms; Z91.041 Radiographic dye allergy status; Z86.16 Personal history of COVID-19 | CPT/HCPCS: 36415; 71045; 71045-26; 80053; 84484; 85025; 85610; 85730; 93005; 99284-25 ==

== ENCOUNTER 2024-12-02 18:59 | Emergency (ER) | payer BC | END 2024-12-02 20:31 | disposition home or self-care (01) | LOC: JD.ED 18:59 | DX: H53.9 Unspecified visual disturbance (principal); I10 Essential (primary) hypertension; Z91.041 Radiographic dye allergy status; Z79.899 Other long term (current) drug therapy; Z86.16 Personal history of COVID-19; Z87.891 Personal history of nicotine dependence | CPT/HCPCS: 99283 ==